=== PATIENT | female | born 1955 | race Caucasian/White ===

== ENCOUNTER → 2016-11-04 | Outpatient (CLI) | payer MEDICARE ==
[~2016-11-04] MED LIST: ALDACTONE25 MG PO; AMARYL2 MG PO; CHEWABLE ASPIRI81 MG PO; CIPRO 500MG TA500 MG PO; DIFLUCAN 100MG100 MG PO; DIFLUCAN150 MG PO; ETODOLAC400 MG PO; FLEXERIL10 MG PO; GLIMEPIRIDE1 MG PO; KEFLEX 500MG.500 MG PO; LANTUS INJ 100 SC; LASIX20 MG PO; LISINOPRIL 5MG T5 MG PO; LORTAB 5/500 501 TAB PO; MEDROL 4MG. DOSE4 MG PO; METFORMIN 500M500 MG PO; METOPROLOL50 MG PO; MULTI VITAMINS1 TAB PO; NABUMETONE750 MG OR; NOVOLOG MIX 70/10 M1 SC; OMEPRAZOLE CAP 20M OR; PERCOCET 5/3251 EACH PO; SEPTRA DS 800 M1 TAB PO; SPIRONOLACTONE25 MG PO; SULFAMETHOXAZOL1 TA6 PO; TESSALON PERLE100 MG PO; ULTRAM50 MG PO; ZITHROMAX Z PA250 MG PO
--- NOTE | 2016-11-08 23:32 | RADIOLOGY REPORT PS360 ---
DIG MAMM-SCREEN MALINA W/CAD CAD Screening ORDERING PHYSICIAN : Kurt Samuels MD PATIENT AGE: 61 years GENDER: Female COMPARISON: Previous mammograms: . As per administration protocol prior mammograms have been been purged INDICATION: Routine screening no hormones no new complaints. Family history:. Maternal grandmother breast cancer age 73. Sister breast cancer age 40 TECHNIQUE: Standard CC and MLO images were obtained. R2 CAD reviewed. FINDINGS: Moderate density breast. No dominant mass nor suspicious calcifications either breast. Skin moles bilaterally. Follow up one year adequate Tiny linear calcification at the inferior right breast appears benign barely evident probable skin calcification IMPRESSION: Stable bilateral mammogram. BI-RADS CATEGORY: 1_Negative RECOMMENDED FOLLOWUP: 12M 12 MONTH FOLLOW-UP (A letter has been sent to the patient regarding results of the study.)
== END ==
LOC: RAD 10-20 09:30
DX: Z12.31 Encounter for screening mammogram for malignant neoplasm of breast (principal)
CPT/HCPCS: G0202

== ENCOUNTER → 2017-02-21 | Outpatient (CLI) | payer MEDICARE ==
--- NOTE | 2017-02-21 15:59 | CARDIOVASCULAR REPORT ---
"Venous Exam Indications: 729.5 Pain in limb. IMPRESSIONS 1. There is no evidence of significant Reflux. 2. No evidence of deep or superficial vein thrombosis involving the right lower extremity History: Right lower extremity pain. Risk factors: Hypertension. Pacemaker 01/09/17. Heart cath done 12/2016. Patient states she had groin pain after cath that has now move down her entire right leg. 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 Obese. Renal disease. Right lower extremity venous duplex evaluation. Doppler flow study including spectral analysis, color and ding scale imaging. Location: Vascular laboratory. Tables: Venous flow and imaging: + +-------+ + |Location |Overall|Flow properties | + +-------+ + |Right common femoral |Patent |Normal phasicity; spontaneous; | | | |normal augmentation; compressible| + +-------+ + |Right saphenofemoral junction|Patent |Compressible | + +-------+ + |Right profunda femoral |Patent |Compressible | + +-------+ + |Right femoral |Patent |Normal phasicity; spontaneous; | | | |normal augmentation; compressible| + +-------+ + |Right greater saphenous |Patent |Normal phasicity; spontaneous; | | | |normal augmentation; compressible| + +-------+ + |Right popliteal |Patent |Normal phasicity; spontaneous; | | | |normal augmentation; compressible| + +-------+ + |Right posterior tibial |Patent |Compressible | + +-------+ + |Right peroneal |Patent |Compressible | + +-------+ + |Right gastrocnemius |Patent |Compressible | + +-------+ + |Right soleal |Patent |Compressible | + +-------+ + (Report amended ) Electronically signed by: Dave Bunn [id number]"
== END ==
LOC: RT 15:08
DX: M79.662 Pain in left lower leg (principal)

== ENCOUNTER → 2017-09-13 | Outpatient (CLI) | payer MEDICARE ==
[2017-09-13 14:46] LABS: BUN 19 mg/dL (7-18)
[2017-09-13 14:48] LABS: GFR (ESTIMATED) 56 ML/MIN (59-)
== END ==
LOC: LAB 13:23
PROVIDERS: Emergency Medicine
DX: E78.5 Hyperlipidemia, unspecified (principal); E11.9 Type 2 diabetes mellitus without complications